=== PATIENT | male | born 1990 | race Caucasian/White ===

== ENCOUNTER 2022-06-09 13:46 | Emergency (ER) | payer OTHER, SELFPAY ==
[2022-06-09 13:57] VITALS: BP 139/80; PULSE 86; RESP 18; TEMP 36.8; O2SAT 98; BMI 30.8
--- NOTE | 2022-06-09 17:07 | ED.URI ---
HPI - URI/Sore Throat <CINTHIA Brown - Last Filed: 06/09/22 17:13> General Chief Complaint: Upper Respiratory Symptoms Stated Complaint: Wants to get swab for strep throat Time Seen by Provider: 06/09/22 16:59 Source: patient Mode of arrival: Ambulatory History of Present Illness HPI Narrative: This is a 31-year-old male presents emergency department complaining of sore throat for 2 days, states it has been worsening, he also has congestion, a cough, mild headache. Denies nausea vomiting or chills, denies fever, denies muscle aches. Endorses runny nose and postnasal drip. Denies any other symptoms. Related Data Previous Rx's Medication Instructions Recorded benzocaine 15 mg-menthol 2.6 mg 1 zion mucous membrane Q2H PRN sore 06/09/22 lozenges (Cepacol Sore Throat throat #16 ea (benzocaine-menthol)) benzonatate 200 mg capsule 200 mg PO BID PRN cough #14 caps 06/09/22 cetirizine 10 mg tablet 10 mg PO BEDTIME #20 tabs 06/09/22 Allergies Allergy/AdvReac Type Severity Reaction Status Date / Time No Known Drug Allergies Allergy Verified 06/09/22 13:56 Review of Systems <CINTHIA Brown - Last Filed: 06/09/22 17:13> Review of Systems ROS Unobtainable: All systems reviewed & are unremarkable except as noted in HPI and below Patient History <CINTHIA Brown - Last Filed: 06/09/22 17:13> Social History Smoking Status: Never smoker Smoking Status: Never smoker Substance Use Type: does not use Exam <CINTHIA Brown - Last Filed: 06/09/22 17:13> Narrative Exam Narrative: Reviewed vitals signs and nursing notes. General: cooperative, comfortable, in no acute distress, well groomed HEENT: symmetrical facial expressions, moist mucous membranes, posterior pharynx is erythematous without exudate, mild tonsillar adenopathy, uvula is midline, no cervical lymphadenopathy, normal phonation, clear speech, afebrile Neuro: normal speech and cognition, A&O x3, ambulatory, clear speech Psych: mental status is grossly normal, congruent mood, normal affect, pleasant and cooperative Initial Vital Signs Initial Vital Signs: Vital Signs Temperature 98.2 F 06/09/22 13:57 Pulse Rate 86 06/09/22 13:57 Respiratory Rate 18 06/09/22 13:57 Blood Pressure 139/80 06/09/22 13:57 Pulse Oximetry 98 06/09/22 13:57 Oxygen Delivery Method 06/09/22 13:57 <Lashaun Tanner DO - Last Filed: 06/12/22 09:40> Initial Vital Signs Initial Vital Signs: Vital Signs Temperature 98.2 F 06/09/22 13:57 Pulse Rate 86 06/09/22 13:57 Respiratory Rate 18 06/09/22 13:57 Blood Pressure 139/80 06/09/22 13:57 Pulse Oximetry 98 06/09/22 13:57 Oxygen Delivery Method 06/09/22 13:57 Course <CINTHIA Brown - Last Filed: 06/09/22 17:13> Orders Ordered: Discontinued Medications Acetaminophen (Acetaminophen 325 Mg Tablet) 650 mg PO NOW ONE Stop: 06/09/22 17:04 Last Admin: 06/09/22 17:32 Dose: 650 mg Documented By: JOHAN Dexamethasone (Dexamethasone 10 Mg/Ml Vial) 10 mg IV NOW ONE Stop: 06/09/22 17:04 Last Admin: 06/09/22 17:32 Dose: 10 mg Documented By: JOHAN Ketorolac Tromethamine (Ketorolac 10 Mg Tablet) 10 mg PO NOW ONE Stop: 06/09/22 17:04 Last Admin: 06/09/22 17:32 Dose: 10 mg Documented By: JOHAN Vital Signs Vital signs: Vital Signs - 8 hr 06/09/22 13:57 Temperature 98.2 F Pulse Rate 86 Respiratory Rate 18 Blood Pressure 139/80 Pulse Oximetry 98 Oxygen Delivery Method Room Air <Lashaun Tanner DO - Last Filed: 06/12/22 09:40> Orders Ordered: Discontinued Medications Acetaminophen (Acetaminophen 325 Mg Tablet) 650 mg PO NOW ONE Stop: 06/09/22 17:04 Last Admin: 06/09/22 17:32 Dose: 650 mg Documented By: JOHAN Dexamethasone (Dexamethasone 10 Mg/Ml Vial) 10 mg IV NOW ONE Stop: 06/09/22 17:04 Last Admin: 06/09/22 17:32 Dose: 10 mg Documented By: JOHAN Ketorolac Tromethamine (Ketorolac 10 Mg Tablet) 10 mg PO NOW ONE Stop: 06/09/22 17:04 Last Admin: 06/09/22 17:32 Dose: 10 mg Documented By: JOHAN Vital Signs Vital signs: Vital Signs - 8 hr 06/09/22 13:57 Temperature 98.2 F Pulse Rate 86 Respiratory Rate 18 Blood Pressure 139/80 Pulse Oximetry 98 Oxygen Delivery Method Room Air MDM - URI/Sore Throat <ANA BrownP - Last Filed: 06/09/22 17:13> Lab Data Labs: Lab Results 06/09/22 Range/Units 17:02 SARS-CoV-2 (PCR) Negative (Negative) Influenza A (RT-PCR) Flu a negative (NEGATIVE) Influenza B (RT-PCR) Flu b negative (NEGATIVE) RSV (PCR) Negative (Negative) Point of Care Testing Rapid Strep A Negative MDM Narrative Medical decision making narrative: Chief Complaint: Sore throat Differential diagnoses include but are not limited to: Viral or bacterial pharyngitis, upper respiratory illness COVID flu, tonsillitis, [employer], RPA, Ludwigs angina, Epiglottitis or Bacterial Tracheitis, EBV, or Strep throat. I have reviewed the patient's vital signs and nursing notes as well as prior records if available. Lab test results independently reviewed, pertinent findings: COVID PCR is pending Clinical decision rules or scores evaluated: Centor criteria 0 point Discussion: No history of immunocompromise. Nontoxic appearance. Patient euvolemic with no trismus. No airway compromise. No change in voice, exudates, enlarged lymph nodes. Able to tolerate PO. Given History and Exam I have low suspicion for this presentation being caused by bacterial source, this is most likely viral as patient has congestion, cough, runny nose and is without tonsillar exudate. Throat culture is pending, patient will follow-up with his primary care provider as needed, return to the emergency department for worsening symptoms or inability to tolerate p.o.. He was given Decadron and Toradol in the emergency department, prescribed cetirizine benzonatate, benzocaine menthol lozenges for comfort. Patient's symptoms improved over duration of stay with above-stated therapies. Social considerations that may affect disposition: None Questions are addressed and there is agreement with the plan and for follow-up. Patient is appropriate for outpatient management. [facility]: #65: Apprpriate Treatment for Patients with URI [x] The patient was diagnosed with upper respiratory infection and was not prescribed or dispensed an antibiotic. [SATISFIES MIPS PERFORMANCE] Centor Score (Modified/McIsaac) for Strep Pharyngitis from Inside on 06/09/2022 All calculations should be rechecked by clinician prior to use RESULT SUMMARY: 0 points 1% - 2.5% likelihood of strep No further testing nor antibiotics. INPUTS: Age ?> 0 = 15-44 years Exudate or swelling on tonsils ?> 0 = No Tender/swollen anterior cervical lymph nodes ?> 0 = No Temp >38&deg;C (100.4&deg;F) ?> 0 = No Cough ?> 0 = Cough present <Lashaun Tanner, DO - Last Filed: 06/12/22 09:40> Lab Data Labs: Lab Results 06/09/22 Range/Units 17:02 SARS-CoV-2 (PCR) Negative (Negative) Influenza A (RT-PCR) Flu a negative (NEGATIVE) Influenza B (RT-PCR) Flu b negative (NEGATIVE) RSV (PCR) Negative (Negative) Point of Care Testing Rapid Strep A Negative Discharge Plan Departure Patient Disposition: Home Clinical Impression: Upper respiratory infection Qualifiers: URI type: unspecified viral URI Qualified Code(s): J06.9 - Acute upper respiratory infection, unspecified Pharyngitis Qualifiers: Pharyngitis/tonsillitis etiology: unspecified etiology Qualified Code(s): J02.9 - Acute pharyngitis, unspecified Instructions: DI for Viral Upper Respiratory Infection -- Adult, DI for Viral Pharyngitis Activity Restrictions/Additional Instructions: *You have been diagnosed with what appears to be viral upper respiratory infection starting with a sore throat. It is red but does not appear to be bacterial at this time which is great. I am sorry for your symptoms, I hope that you start feeling better soon. Please use Zyrtec each night to decrease the postnasal drip, stay hydrated, take ibuprofen 800 mg every 8 hours with food and water to decrease inflammation. The steroid work for the next 3 days and reduce the inflammation in your throat. Follow-up if you have worsening symptoms, I hope you feel better soon. *What to do: *Please continue to take your regular medications as directed. [ x] New medication prescriptions sent to your pharmacy: [ [facility]] [ ] New medication written as a paper prescription [ ] No new medications given *Please follow up with your primary care provider in 2-3 days, call for an appointment. Let them know you were seen in the Emergency Department and that we asked that you be seen for follow-up. We will electronically transmit a record of today's note if your PCP is in our system *If you do not have a primary care provider please contact [phone] to establish care with one of the [facility] primary care providers. *Return to Emergency Department if you should have any new, worsening, or concerning symptoms, such as [fever greater than 101F, chills, worsening pain, persistent vomiting or other bothersome symptoms]. Prescriptions: New Cepacol Sore Throat (aaron-men) 15-2.6 mg lozenge 1 zion mucous membrane Q2H PRN (Reason: sore throat) Qty: 16 0RF cetirizine 10 mg tablet 10 mg PO BEDTIME Qty: 20 0RF benzonatate 200 mg capsule 200 mg PO BID PRN (Reason: cough) Qty: 14 0RF Stand Alone Forms: Patient Portal/API <Lashaun Tanner, DO - Last Filed: 06/12/22 09:40> [facility]ending Sindhu Attestation: I was immediately available in the department for consultation. Documentation has been reviewed.
[2022-06-09] MEDS: DEXAMETHASONE 10 MG/ML VIAL IV (17:32)
[2022-06-09] MEDS: KETOROLAC 10 MG TABLET PO (17:32)
[2022-06-09] MEDS: ACETAMINOPHEN 325 MG TABLET 650 MG PO (17:32)
[2022-06-09 17:44] LABS: Influenza A - CEPHEID Flu A NEGATIVE (NEGATIVE); Influenza B - CEPHEID Flu B NEGATIVE (NEGATIVE); Respiratory Syncytial Virus Negative (Negative)
[2022-06-09 17:48] LABS: COVID-19 CEPHEID 4-PLEX PCR Negative (Negative)
== END 2022-06-09 17:38 | disposition home or self-care (01) ==
PROVIDERS: Emergency Provider Nurse Practitioner Critical Care Medicine
DX: J06.9 Acute upper respiratory infection, unspecified (principal); J02.9 Acute pharyngitis, unspecified; Z20.822 Contact with and (suspected) exposure to COVID-19
CPT/HCPCS: 0241U; 87880; 96374; 99283; 99284; J1100

== ENCOUNTER 2022-12-31 17:48 | Emergency (ER) | payer OTHER, SELFPAY ==
[2022-12-31 17:53] VITALS: BP 146/91; PULSE 86; RESP 16; TEMP 36.7; O2SAT 97; BMI 30.8
--- NOTE | 2022-12-31 18:09 | DI.RAD.S_ITS ---
PROCEDURE: XR FOOT LT MIN 3V INDICATIONS: left 1st mtp joint pain and edema TECHNIQUE: 3 views of the foot were acquired. COMPARISON: None. FINDINGS: Bones: No fractures or dislocations. No suspicious bony lesions. Soft tissues: No tibiotalar joint effusion. Achilles tendon appears normal. IMPRESSION: Unremarkable left foot radiographs Approved by: Russell Bender M.D. on 12/31/2022 at 17:48
--- NOTE | 2022-12-31 18:18 | ED_ITS ---
HPI - Extremity Injury (Lower) <Veda Barbosa PA-C - Last Filed: 12/31/22 18:40> General Chief Complaint: Extremity Injury, Lower Stated Complaint: L/ foot injury/ thinks its broken Time Seen by Provider: 12/31/22 17:59 Source: patient Mode of arrival: Ambulatory History of Present Illness HPI Narrative: Patient is 32-year-old male who presents with left 1st MTP pain. Yesterday he went for a run, which is a normal activity for him in shoes that he has already run 150 miles in, and when he got home he noted this pain. His shoe and his joint was swollen and red, not warm. No fever or systemic illness. He has no history of gout. He does eat red meat, drink beer. Pain is worse when he is walking, he has to walk on the side of his foot because of the pain. He is not taken any pain medicine. He reports the swelling is better today because he has been applying ice. Related Data Previous Rx's Medication Instructions Recorded benzocaine 15 mg-menthol 2.6 mg 1 zion mucous membrane Q2H PRN sore 06/09/22 lozenges (Cepacol Sore Throat throat #16 ea (benzocaine-menthol)) benzonatate 200 mg capsule 200 mg PO BID PRN cough #14 caps 06/09/22 cetirizine 10 mg tablet 10 mg PO BEDTIME #20 tabs 06/09/22 colchicine (gout) 0.6 mg tablet 0.6 mg PO DAILY #30 tabs 12/31/22 prednisone 20 mg tablet 40 mg PO DAILY PRN gout 3 days #6 12/31/22 tabs Allergies Allergy/AdvReac Type Severity Reaction Status Date / Time No Known Drug Allergies Allergy Verified 06/09/22 13:56 Review of Systems <Veda Barbosa PA-C - Last Filed: 12/31/22 18:40> Review of Systems ROS Unobtainable: All systems reviewed & are unremarkable except as noted in HPI and below Patient History <Veda Barbsoa PA-C - Last Filed: 12/31/22 18:40> Social History Smoking Status: Never smoker Smoking Status: Never smoker Substance Use Type: does not use Exam <Veda Barbosa PA-C - Last Filed: 12/31/22 18:40> Narrative Exam Narrative: GENERAL: 32 year old patient appears stated age. Well-developed patient, in no distress. NEURO: AOx3. HEAD: Atraumatic. Normocephalic. RESPIRATORY: No distress EXTREMITIES: Left 1st MTP is erythematous and edematous, pain with passive range of motion. Positive DP pulse. Sensation intact. SKIN: No rash or erythema of visible areas Initial Vital Signs Initial Vital Signs: Vital Signs Temperature 98.0 F 12/31/22 17:53 Pulse Rate 86 12/31/22 17:53 Respiratory Rate 16 12/31/22 17:53 Blood Pressure 146/91 H 12/31/22 17:53 Pulse Oximetry 97 12/31/22 17:53 Oxygen Delivery Method Room Air 12/31/22 17:53 <Edwin Saravia DO - Last Filed: 01/01/23 02:40> Initial Vital Signs Initial Vital Signs: Vital Signs Temperature 98.0 F 12/31/22 17:53 Pulse Rate 86 12/31/22 17:53 Respiratory Rate 16 12/31/22 17:53 Blood Pressure 146/91 H 12/31/22 17:53 Pulse Oximetry 97 12/31/22 17:53 Oxygen Delivery Method Room Air 12/31/22 17:53 Course <Veda Barbosa PA-C - Last Filed: 12/31/22 18:40> Orders Ordered: ED Orders 12/31/22 18:09 XR foot LT min 3V Stat Discontinued Medications Colchicine (Colchicine 0.6 Mg Tablet) 1.2 mg PO NOW ONE Stop: 12/31/22 18:16 Last Admin: 12/31/22 18:38 Dose: 1.2 mg Documented By: EDILSON Colchicine (Colchicine 0.6 Mg Tablet) 0.6 mg PO DAILY MELANIE Colchicine (Colchicine 0.6 Mg Tablet) 0.6 mg PO NOW ONE Stop: 12/31/22 18:29 Last Admin: 12/31/22 18:39 Dose: 0.6 mg Documented By: MPO Ketorolac Tromethamine (Ketorolac 30 Mg/Ml Vial) 15 mg IM NOW ONE Stop: 12/31/22 18:16 Last Admin: 12/31/22 18:46 Dose: Not Given Documented By: BS Prednisone (Prednisone 20 Mg Tablet) 40 mg PO NOW ONE Stop: 12/31/22 18:18 Last Admin: 12/31/22 18:46 Dose: Not Given Documented By: ANDRES Vital Signs Vital signs: Vital Signs - 8 hr 12/31/22 17:53 Temperature 98.0 F Pulse Rate 86 Respiratory Rate 16 Blood Pressure 146/91 H Pulse Oximetry 97 Oxygen Delivery Method Room Air <Edwin Saravia DO - Last Filed: 01/01/23 02:40> Orders Ordered: ED Orders 12/31/22 18:09 XR foot LT min 3V Stat Discontinued Medications Colchicine (Colchicine 0.6 Mg Tablet) 1.2 mg PO NOW ONE Stop: 12/31/22 18:16 Last Admin: 12/31/22 18:38 Dose: 1.2 mg Documented By: EDILSON Colchicine (Colchicine 0.6 Mg Tablet) 0.6 mg PO DAILY MELANIE Colchicine (Colchicine 0.6 Mg Tablet) 0.6 mg PO NOW ONE Stop: 12/31/22 18:29 Last Admin: 12/31/22 18:39 Dose: 0.6 mg Documented By: EDILSON Ketorolac Tromethamine (Ketorolac 30 Mg/Ml Vial) 15 mg IM NOW ONE Stop: 12/31/22 18:16 Last Admin: 12/31/22 18:46 Dose: Not Given Documented By: ANDRES Prednisone (Prednisone 20 Mg Tablet) 40 mg PO NOW ONE Stop: 12/31/22 18:18 Last Admin: 12/31/22 18:46 Dose: Not Given Documented By: ANDRES Vital Signs Vital signs: Vital Signs - 8 hr 12/31/22 17:53 Temperature 98.0 F Pulse Rate 86 Respiratory Rate 16 Blood Pressure 146/91 H Pulse Oximetry 97 Oxygen Delivery Method Room Air MDM - Extremity Injury (Lower) <Veda Barbosa PA-C - Last Filed: 12/31/22 18:40> Imaging Data Extremity x-ray #1: My Impression: no acut bony abnormality seen on xray MDM Narrative Medical decision making narrative: Multiple etiologies for patient's symptoms considered including, but not limited to: Gout, septic arthritis, fracture, soft tissue injury. I suspect gout given clinical presentation in a male with a swollen 1st MTP joint. Doubt fracture but patient strongly requests a x-ray which we will obtain today. Doubt septic arthritis as joint is not warm, no fever, no signs of systemic illness. Will treat with colchicine, Toradol, prednisone. Patient declines to take Toradol or prednisone tonight. He will picker/puller prednisone and colchicine from pharmacy tomorrow. Patient's symptoms improved over duration of stay with above-stated therapies. Findings and discharge diagnosis discussed with patient/family followed by verbalization of understanding Return precautions discussed with patient/family whom verbalize understanding of diagnosis and plan Discharge Plan Departure Patient Disposition: Home Clinical Impression: Gout Instructions: DI for Gout Activity Restrictions/Additional Instructions: *You have been diagnosed with gout. I do not see any acute abnormality on your x-ray. Please return to see a provider if the pain does not resolve after prescribed treatment in 1 week, or if you develop fever along with your joint pain and swelling. Please read the included instructions about preventing gout flares. Additionally there are medications you can take for prevention if this becomes a problem, please speak with a primary care provider about this if needed. *What to do: *Please continue to take your regular medications as directed. [ x] New medication prescriptions sent to your pharmacy: [[facility] ] [ ] New medication written as a paper prescription [ ] No new medications given *Please follow up with your primary care provider in 2-3 days, call for an appointment. Let them know you were seen in the Emergency Department and that we ask that you be seen in follow up. We will electronically transmit a record of today's note if your PCP is in our system *If you do not have a primary care provider please contact the [facility] Resource line at [phone]. They will ask some questions about your medical history and help get you set up with a doctor in the community. *Return to Emergency Department if you should have any new, worsening or concerning symptoms, such as [fever greater than 101 F, shaking chills, worsening pain, persistent vomiting or other bothersome symptoms] Prescriptions: New prednisone 20 mg tablet 40 mg PO DAILY PRN (Reason: gout) 3 Days Qty: 6 0RF colchicine (gout) 0.6 mg tablet 0.6 mg PO DAILY Qty: 30 0RF Rx Instructions: When gout flare starts, take two tabs immediately and one tab one hour later. After that, take one tablet daily until the flare resolves. No Action Cepacol Sore Throat (aaron-men) 15-2.6 mg lozenge 1 zion mucous membrane Q2H PRN (Reason: sore throat) Qty: 16 0RF cetirizine 10 mg tablet 10 mg PO BEDTIME Qty: 20 0RF benzonatate 200 mg capsule 200 mg PO BID PRN (Reason: cough) Qty: 14 0RF Referrals: Miscellaneous,Doctor, MD [Primary Care Provider] - Stand Alone Forms: Patient Portal/API <Edwin Saravia DO - Last Filed: 01/01/23 02:40> [facility] ED Attending Sindhu Attestation: I was immediately available in the department for consultation. Documentation has been reviewed. I agree with assessment and plan.
[2022-12-31] MEDS: COLCHICINE 0.6 MG TABLET 1.2 MG PO (18:38)
[2022-12-31] MEDS: COLCHICINE 0.6 MG TABLET PO (18:39)
== END 2022-12-31 18:48 | disposition home or self-care (01) ==
PROVIDERS: Emergency Provider Physician Assistant
DX: M10.9 Gout, unspecified (principal)
CPT/HCPCS: 73630; 99283

== ENCOUNTER 2023-10-05 13:36 | Emergency (ER) | payer OTHER, SELFPAY ==
[2023-10-05 13:38] VITALS: BP 145/81; PULSE 105; RESP 18; TEMP 36.4; O2SAT 97; BMI 31.5
[2023-10-05] MEDS: BACITRACIN OINT 0.9 GM PCKT 1 APPLIC TOP (14:16)
[2023-10-05 14:30] VITALS: BP 157/87; PULSE 83; O2SAT 99
--- NOTE | 2023-10-05 14:30 | ED_ITS ---
HPI - Wound/Laceration General Chief Complaint: Wound/Laceration Stated Complaint: R ring finger laceration, open wound Time Seen by Provider: 10/05/23 14:00 Source: patient Mode of arrival: Ambulatory History of Present Illness HPI narrative: 33-year-old man whose tetanus is current. He avulsed some skin off of his right ring finger just prior to arrival, was unable to stop the bleeding therefore he came to the emergency department. Related Data Previous Rx's Medication Instructions Recorded benzocaine 15 mg-menthol 2.6 mg 1 zion mucous membrane Q2H PRN sore 06/09/22 lozenges (Cepacol Sore Throat throat #16 ea (benzocaine-menthol)) benzonatate 200 mg capsule 200 mg PO BID PRN cough #14 caps 06/09/22 cetirizine 10 mg tablet 10 mg PO BEDTIME #20 tabs 06/09/22 colchicine 0.6 mg tablet 0.6 mg PO DAILY #30 tabs 12/31/22 Allergies Allergy/AdvReac Type Severity Reaction Status Date / Time No Known Drug Allergies Allergy Verified 10/05/23 13:43 Patient History Social History Smoking Status: Never smoker Smoking Status: Never smoker Substance Use Type: does not use Exam Narrative Exam Narrative: Well-appearing male in no distress with normal vital signs Initial Vital Signs Initial Vital Signs: Vital Signs Temperature 97.5 F L 10/05/23 13:38 Pulse Rate 105 H 10/05/23 13:38 Respiratory Rate 18 10/05/23 13:38 Blood Pressure 145/81 H 10/05/23 13:38 Pulse Oximetry 97 10/05/23 13:38 Oxygen Delivery Method Room Air 10/05/23 13:38 Skin Other: On the radial aspect of the right ring finger there is an area of superficial skin avulsion. He has fully intact range of motion does not have bony tenderness has intact capillary refill distally. Bleeding is easily controlled with direct pressure, it was not brisk. There is no suturable laceration. Course Orders Ordered: Discontinued Medications Bacitracin (Bacitracin Oint 0.9 Gm Pckt) 1 applic TOP NOW ONE Stop: 10/05/23 14:09 Last Admin: 10/05/23 14:16 Dose: 1 applic Documented By: ES Vital Signs Vital signs: Vital Signs - 8 hr // 13:38 Temperature 97.5 F L Pulse Rate 105 H Respiratory Rate 18 Blood Pressure 145/81 H Pulse Oximetry 97 Oxygen Delivery Method Room Air MDM - Wound/Laceration MDM Narrative Medical decision making narrative: Superficial skin avulsion without evidence of fracture or underlying tendon in jury. Recommended pressure dressing and home wound care. Tetanus was current Discharge Plan Departure Patient Disposition: Home Clinical Impression: Avulsion of skin Activity Restrictions/Additional Instructions: Keep wound clean and covered. Apply antibiotic ointment and change the dressing daily. We have applied a pressure dressing, leave this on for 24 hours, elevate the wound above the level of the heart when able. Recheck in the emergency department for redness swelling or discharge from the wound that could indicate infection. Expect that this is going to take a few days to heal, take it easy with your finger and keep your finger clean until then. Prescriptions: No Action Cepacol Sore Throat (aaron-men) 15-2.6 mg lozenge 1 zion mucous membrane Q2H PRN (Reason: sore throat) Qty: 16 0RF cetirizine 10 mg tablet 10 mg PO BEDTIME Qty: 20 0RF benzonatate 200 mg capsule 200 mg PO BID PRN (Reason: cough) Qty: 14 0RF colchicine 0.6 mg tablet 0.6 mg PO DAILY Qty: 30 0RF Rx Instructions: When gout flare starts, take two tabs immediately and one tab one hour later. After that, take one tablet daily until the flare resolves. Referrals: Miscellaneous,Doctor, MD [Primary Care Provider] - Stand Alone Forms: Patient Portal/API
== END 2023-10-05 14:25 | disposition home or self-care (01) ==
PROVIDERS: Emergency Provider Emergency Medicine
DX: S61.204A Unspecified open wound of right ring finger without damage to nail, initial encounter (principal); X58.XXXA Exposure to other specified factors, initial encounter
CPT/HCPCS: 99282; 99283

== ENCOUNTER 2024-12-17 10:45 | Outpatient (RCR) | payer OTHER, SELFPAY ==
--- NOTE | 2024-12-04 19:09 | PT.OIE ---
Current Diagnoses Attention-deficit hyperactivity disorder, unspecified type (12/04/24) Lesion of sciatic nerve, left lower limb (12/04/24) Radiculopathy, lumbosacral region (12/04/24) Past Medical History (Last Updated 07/04/24 @ 09:32 by Margaux Sue DO) ADHD (~2007) Foot pain (~2018) TONIE (generalized anxiety disorder) (~2017) Hyperlipidemia, unspecified Obesity (BMI 30.0-34.9) Tinnitus Visit Care Team Role Provider Type Margaux Sue DO Attending Provider Physician Family Provider Primary Care Provider Referring Provider Specialty: Family Practice Address: [address] [place] [address], [address], [facility] Email: [email or web address] Physical Therapy Initial Evaluation PT-OP-A Visit Information Start: 12/01/24 18:59 Freq: Status: Active Protocol: Document 12/04/24 10:50 LRN (Rec: 12/04/24 11:48 LRN Laptop) Out-Patient Physical Therapy Visit Information Visit Information Visit Type Initial Evaluation Visit Start Time 10:50 Visit Stop Time 11:45 Visit Number 1 Evaluation Information Evaluation Date 12/04/24 Precautions Precautions Anxiety & ADHD controlled by meds, intermittent back pain (Piriformis pain) PT-OP-B Current Condition Start: 12/01/24 18:59 Freq: Status: Active Protocol: Document 12/04/24 10:50 LRN (Rec: 12/04/24 11:48 LRN Laptop) Current Condition History of Current Condition Onset Date 3 yrs ago Current Complaints L buttock pain radiating into the leg, down the front of cash. History of Current Here for same pain as previously has had Piriformis Condition Pain. Feels like boiling water is running from L buttock down the front of the leg going across the knee . Previously treated 2 yrs in a clinic in [place] the [employer] [place]. Just got out of [place] 7 months ago. Piriformis pain managed with stretch from 2019 to 2021, started to be a problem 3 yrs ago pain wouldn' t go did not go away. Only stretching to manage the pain. Getting up from sitting is painful. Tries to walk daily, but has to break it up into increments 10- 15', 2-3x/day. Prior Treatments and PT in 2021 for the L LE pain. Tests Treatment Goals Patient/Caregiver Pt goals: Goals -Relief of pain to be able to sit for > 30 minutes, -Return to run 15' 1-2x/day (not running) or weight or cross training (being able to do squatting). -Consistent with HEP. 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 Effect Therapy/ Has 3 yo child. Recovery PT-OP-C Subjective Start: 12/01/24 18:59 Freq: Status: Active Protocol: Document 12/04/24 10:50 LRN (Rec: 12/04/24 11:48 LRN Laptop) OP-PT Subjective Patient Comments Patient Comments States he has had various muscle pain from not stretching. Used to run and play rugby (4 yrs ago stopped). Patient Questionnaires Lower Extremity Functional Scale LEFS Score 37 LEFS Impairment 40 to 59% Impaired (Score 32-47) Oswestry Low Back Index Oswestry Score 22 Oswestry Impairment 20 to 39% Impaired (Score 20-39) PT-OP-H Neuro Start: 12/01/24 18:59 Freq: Status: Active Protocol: Document 12/04/24 10:50 LRN (Rec: 12/04/24 11:48 LRN Laptop) Sensation Evaluation Gross Sensation Gross Sensation Left LE Impaired Sensation Numbness,Tingling Description Dermatome L5 Impairments Location Details Left Lateral Leg Light Touch Impaired Comments Summary Comments Pt reported decreased sensation of anterior thigh, but at time of assessment sensation to light touch was normal Deep Tendon Reflex & Clonus Assessment Deep Tendon Reflex Right Achilles Deep Tendon Reflex 3+ Normal But Brisk Left Achilles Deep Tendon Reflex 2+ Normal Left Patellar Deep Tendon Reflex 1+ Diminished Right Patellar Deep Tendon Reflex 3+ Normal But Brisk PT-OP-J Posture/Palpation/Skin Start: 12/01/24 18:59 Freq: Status: Active Protocol: Document 12/04/24 10:50 LRN (Rec: 12/04/24 11:48 LRN Laptop) Posture Evaluation Position Standing Arm Posture (L) Internally Rotated,(R) Internally Rotated Comments Posture Comments RLE slightly ER'd more than left. Palpation Assessment Location L gluteal ms Palpation Findings Tenderness Spinous process of L3, L4, L5 Palpation Location PA pressure Palpation Findings Tenderness PT-OP-K Range of Motion Start: 12/01/24 18:59 Freq: Status: Active Protocol: Document 12/04/24 10:50 LRN (Rec: 12/04/24 11:48 LRN Laptop) Lumbar Spine Range of Motion Lumbar Spine Active Degrees Testing Position Standing Flexion 78 Extension 25 Rotation Left 20 Rotation Right 10 Lateral Flexion Left 25 Lateral Flexion 20 Right Comments Ext: Lumbar 25? with hip [id number]?. Flex: Lumbar 78? with hip flexion 55? Hip Goniometric Range of Motion Hip Right Passive Testing Position Supine Straight Leg Raise 90 Internal Rotation 20 External Rotation 55 Left Passive Straight Leg Raise 60 Internal Rotation 20 External Rotation 75 Comments Hip Flexion elicited sensation change in anterior thigh . PT-OP-L Special Tests Start: 12/01/24 18:59 Freq: Status: Active Protocol: Document 12/04/24 10:50 LRN (Rec: 12/04/24 11:48 LRN Laptop) Special Tests Lumbar Spine Special Tests Manual Traction Test Results + L LE Comments Mild normalization of L lateral lower leg sensation Straight Leg Raise Test Results + L LE Comments L LE Pain at PSLR 60 deg's, R LE 90 deg's PT-OP-M Strength Start: 12/01/24 18:59 Freq: Status: Active Protocol: Document 12/04/24 10:50 LRN (Rec: 12/04/24 11:48 LRN Laptop) Knee Strength Knee Manual Muscle Testing Right Comments Strength is 5/5 Left Flexion (S2) 4+ Good+ Comments Strength is 5/5 except as indicated abovel Ankle/Foot Strength Ankle and Foot Manual Muscle Testing Right Comments Strength is 5/5 Left Dorsiflexion (L4) 4+ Good+ Comments Strength is 5/5 except as indicated above. PT-OP-Q Treatments Start: 12/01/24 18:59 Freq: Status: Active Protocol: Document 12/04/24 10:50 LRN (Rec: 12/04/24 11:48 LRN Laptop) Therapeutic Activity Therapeutic Activity Lying postures Name supine, sidelie & prone Comments Brief review, pt okayed to sleep prone if it is his position of comfort. Transfers Name Supine to sit log roll vs sit up transfer Comments Reviewed briefly log roll transfer with handout. Body mechanics Name Body mechanics for sidelying and sitting. Comments Reviewed briefly handout for posturing in resting sidelie, and standing in kitchen. Self-Care/Home Management Treatment Education Other Education Discussed results of evaluation, extended discussion of goals, treatment, and plan of care (POC) with pt; pt agreeable to evaluation, goals, treatment and POC. Activities Self-Care/Home Issued with brief review of Handouts: Lying postures ( Management sup, side, prone); body mechanics standing, and sitting Activities ; and Transfer: Log roll method for bed mobility sup<> sit. PT-OP-T Assessment and Plan Start: 12/01/24 18:59 Freq: Status: Active Protocol: Document 12/04/24 10:50 LRN (Rec: 12/04/24 11:48 LRN Laptop) Physical Therapy Assessment Rehab Potential Rehabilitation Good Potential Evaluation Complexity Number of Personal 1-2 Factors/ Comorbidities Number of Body 4 or More Systems Impaired Clinical Evolving Presentation at Evaluation Impairments Impairments Activity Tolerance,Pain,ROM,Sensation,Soft Tissue Mobility,Strength,Transfers Goals Three Impairment Pt limited in sitting ability due to pain Short Term Goal (STG Pt will be educated in proper sitting/standing posture. ) 12/04/24: handout issued for safe sitting body mechanics. STG Duration 01/01/25 progressed 12/04/24 Data Center Architect Goal (LTG) Relief of pain to be able to sit for > 30 minutes. LTG Duration 01/29/25 Two Impairment Pt not able to return to prior level of function of exercise Short Term Goal (STG Pt will be educated in proper body mechanics for ADLs ) and exercise. 12/04/24: Brief discussion w/handout issued: Postures in lying (sup, side, prone) STG Duration 01/01/25 progressed 12/04/24 Data Center Architect Goal (LTG) Return to run 15' 1-2x/day (not running) or weight or cross training (being able to do squatting). LTG Duration 01/29/25 One Impairment Pt lacks appropriate self care HEP Short Term Goal (STG Pt will be educated and will demonstrate log roll ) transfers. 12/04/24: Pt briefly educated in log roll transfer sup >sit. STG Duration 01/01/25 progressed 12/04/24 Group Home Goal (LTG) Pt will be independent and consistent with a self care HEP for core/hip strengthening and mobility ex's. LTG Duration 01/29/25 Assessment Summary Assessment Pt is a 34 yo male who presents with signs and symptoms of lumbar radiculopathy with sensation changes in his L LE (L5) and weakness of hamstring, ankle DF & Big toe extension, and limited mobility with trunk and hip IR ROM. There is no lateral shift of the L/S. If pt is unable to resolve his sensation changes and pain it is recommended for further assessment for possible lumbar involvement. The pt will benefit from skilled physical therapy for pt education, posture and body mechanics training, hip/core mobility and L LE strengthening. Physical Therapy Plan Frequency and Duration Frequency of 2x/Week Treatment Duration of 8 treatment (weeks) Plan of Care Start 12/04/24 Date Plan of Care End 01/29/25 Date Therapeutic Interventions Therapeutic Home Exercise Program,Joint Mobilizations,Manual Interventions Therapy,Neuromuscular Re-education,Self-Care/Home Management,Therapeutic Activities,Therapeutic Exercises Modalities Electric Stimulation,Hot Packs,Ultrasound Next Visit Focus/Plan Next Note Type Treatment Note Next Visit Plan Pt to complete Pain diagram. Assess vertical spine loading, slump test and prone press ups, and hip/trunk strength. Review and educate in proper transfers, body mechanics for exercise, and work posturing. Start Seema extension exercises and improve thoracic mobility (flex, rot). Teach care for lumbar nerves and proper hip IR stretching (no ball rolling) & neural glides. Manual lumbar traction if needed. Modalities as needed for pain. POC: Seema Extension rehab. Pt education, Manual therapy. Therapeutic Exercises, Therapeutic Activities, Neuromuscular Reeducation.
--- NOTE | 2024-12-09 08:31 | PT-OP ANOTE ---
Per phone conversation, pt states he has a mtg in 15' and can't make it to therapy. Pt reminded of the cancelation policy for no shows, and notified of his next appt on 12/11/24 at 11:30.
--- NOTE | 2024-12-11 12:18 | PT.OTN ---
Current Diagnoses Attention-deficit hyperactivity disorder, unspecified type (12/11/24) Lesion of sciatic nerve, left lower limb (12/11/24) Radiculopathy, lumbosacral region (12/11/24) Physical Therapy Treatment Note PT-OP-A Visit Information Start: 12/01/24 18:59 Freq: Status: Active Protocol: Document 12/11/24 11:36 SP (Rec: 12/11/24 12:41 SP [id number]) Out-Patient Physical Therapy Visit Information Visit Information Visit Type Treatment Note Visit Start Time 11:36 Visit Stop Time 12:18 Visit Number 2 Number of HYDRO PNEUMATIC TESTER Visits 1 PT-OP-B Current Condition Start: 12/01/24 18:59 Freq: Status: Active Protocol: Document 12/04/24 10:50 LRN (Rec: 12/04/24 11:48 LRN Laptop) Current Condition History of Current Condition Onset Date 3 yrs ago Current Complaints L buttock pain radiating into the leg, down the front of cash. History of Current Here for same pain as previously has had Piriformis Condition Pain. Feels like boiling water is running from L buttock down the front of the leg going across the knee . Previously treated 2 yrs in a clinic in [place] near the [employer] base. Just got out of [place] 7 months ago. Piriformis pain managed with stretch from 2019 to 2021, started to be a problem 3 yrs ago pain wouldn' t go did not go away. Only stretching to manage the pain. Getting up from sitting is painful. Tries to walk daily, but has to break it up into increments 10- 15', 2-3x/day. Prior Treatments and PT in 2021 for the L LE pain. Tests Treatment Goals Patient/Caregiver Pt goals: Goals -Relief of pain to be able to sit for > 30 minutes, -Return to run 15' 1-2x/day (not running) or weight or cross training (being able to do squatting). -Consistent with HEP. 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 Effect Therapy/ Has 3 yo child. Recovery PT-OP-C Subjective Start: 12/01/24 18:59 Freq: Status: Active Protocol: Document 12/11/24 11:36 SP (Rec: 12/11/24 12:41 SP [id number]) OP-PT Subjective Patient Comments Patient Comments Pt stated woke up back hurtigng so did some things make it better, self traction hangs on kids monkey bars, downward dog and TA back to wall walk shld up to decrease. Uses ball sit on for self massage/release piriformis but hasn't been helping as much past month so stopped. He stated performs wt squats 135# 1-2 day/ wk couple days (MWF or MF). He walk as much as can: short 1/2 mile, >2 miles straight pain. PT-OP-H Neuro Start: 12/01/24 18:59 Freq: Status: Active Protocol: Document 12/04/24 10:50 LRN (Rec: 12/04/24 11:48 LRN Laptop) Sensation Evaluation Gross Sensation Gross Sensation Left LE Impaired Sensation Numbness,Tingling Description Dermatome L5 Impairments Location Details Left Lateral Leg Light Touch Impaired Comments Summary Comments Pt reported decreased sensation of anterior thigh, but at time of assessment sensation to light touch was normal Deep Tendon Reflex & Clonus Assessment Deep Tendon Reflex Right Achilles Deep Tendon Reflex 3+ Normal But Brisk Left Achilles Deep Tendon Reflex 2+ Normal Left Patellar Deep Tendon Reflex 1+ Diminished Right Patellar Deep Tendon Reflex 3+ Normal But Brisk PT-OP-J Posture/Palpation/Skin Start: 12/01/24 18:59 Freq: Status: Active Protocol: Document 12/04/24 10:50 LRN (Rec: 12/04/24 11:48 LRN Laptop) Posture Evaluation Position Standing Arm Posture (L) Internally Rotated,(R) Internally Rotated Comments Posture Comments RLE slightly ER'd more than left. Palpation Assessment Location L gluteal ms Palpation Findings Tenderness Spinous process of L3, L4, L5 Palpation Location PA pressure Palpation Findings Tenderness PT-OP-K Range of Motion Start: 12/01/24 18:59 Freq: Status: Active Protocol: Document 12/04/24 10:50 LRN (Rec: 12/04/24 11:48 LRN Laptop) Lumbar Spine Range of Motion Lumbar Spine Active Degrees Testing Position Standing Flexion 78 Extension 25 Rotation Left 20 Rotation Right 10 Lateral Flexion Left 25 Lateral Flexion 20 Right Comments Ext: Lumbar 25? with hip [id number]?. Flex: Lumbar 78? with hip flexion 55? Hip Goniometric Range of Motion Hip Right Passive Testing Position Supine Straight Leg Raise 90 Internal Rotation 20 External Rotation 55 Left Passive Straight Leg Raise 60 Internal Rotation 20 External Rotation 75 Comments Hip Flexion elicited sensation change in anterior thigh . PT-OP-L Special Tests Start: 12/01/24 18:59 Freq: Status: Active Protocol: Document 12/04/24 10:50 LRN (Rec: 12/04/24 11:48 LRN Laptop) Special Tests Lumbar Spine Special Tests Manual Traction Test Results + L LE Comments Mild normalization of L lateral lower leg sensation Straight Leg Raise Test Results + L LE Comments L LE Pain at PSLR 60 deg's, R LE 90 deg's PT-OP-M Strength Start: 12/01/24 18:59 Freq: Status: Active Protocol: Document 12/04/24 10:50 LRN (Rec: 12/04/24 11:48 LRN Laptop) Knee Strength Knee Manual Muscle Testing Right Comments Strength is 5/5 Left Flexion (S2) 4+ Good+ Comments Strength is 5/5 except as indicated abovel Ankle/Foot Strength Ankle and Foot Manual Muscle Testing Right Comments Strength is 5/5 Left Dorsiflexion (L4) 4+ Good+ Comments Strength is 5/5 except as indicated above. PT-OP-Q Treatments Start: 12/01/24 18:59 Freq: Status: Active Protocol: Document 12/11/24 11:36 SP (Rec: 12/11/24 12:41 SP [id number]) Therapeutic Exercises Supine Exercises self Traction Supine Exercise Name instructed & performed Resistance LEs over elevated portable bench as alternative positioning Reps/Minutes 4 min Comments good feedback Prone Exercises Downward DOg Prone Exercise Name review self stretch Reps/Minutes 30 sec hold 1-2 reps Comments good form and give significant relief to him when back is bothersome- sathish Plank Prone Exercise Name forearm and feet- reviewed self HEP- stated can continue Resistance *recheck again next tx for time Reps/Minutes 20 sec Comments cues for PPT and TS lower midline- improved stability with no pain BIrd Dog Prone Exercise Name BUE/BLE ext- added to HEP (declined HO) Reps/Minutes 10 reps alternating- 2 SH Comments cued slow pacing Prone press ups Prone Exercise Name added to HEP (declined HO) Reps/Minutes 20 sec hold x5 reps Comments forearms>hands, pelvis on table/floor- good form, no pain Standing Exercises squats Standing Exercise air squat- assess mechanics/form Name Resistance dowel in BUE on upper back Equipment Used *improved very minimal pelvic wink Reps/Minutes 8 reps Comments cued PPT with TA draw in neutral LS- then hip hinge- Manual Therapy Treatment Consent Patient gave verbal Yes consent for manual treatment Soft Tissue Mobilization LB Body Location L>R QL, ES more tight than Piriformis seems fine/no tension Mobilization Type Rolling,Strumming Body Position prone, foam roller under ankles Comments Gentle minimal pressure, heavy to uncomfortable Manual Traction LS Reps/Duration 5 reps 20 sec hold Comments prone caudal pelvis good response decreased pain in back Self-Care/Home Management Treatment Education Patient Education Body Mechanics,Pain Management,Posture,Safety Other Education Assessment: Vertical standing loading test- no pain Slump Test: + on L slumped and LAQ- pain/spasm into center calf, fine on R Continued education on use pillows during sleeping prone under pelvis, SL between BLEs BUEs and behind back, under thighs supine for spinal alignment support. Education during squatting for PPT and TA fac hip hinge proper form/body mechanics during picking up child and low 45# bar to no weight at gym to support back health alignment right now, verbalized understanding latent response 1-2 days could be body's response to nerve involvement right now. PT-OP-T Assessment and Plan Start: 12/01/24 18:59 Freq: Status: Active Protocol: Document 12/11/24 11:36 SP (Rec: 12/11/24 12:41 SP [id number]) Physical Therapy Assessment Goals Three Impairment Pt limited in sitting ability due to pain Short Term Goal (STG Pt will be educated in proper sitting/standing posture. ) 12/04/24: handout issued for safe sitting body mechanics. 12/11/24: using sit HO for guidence, can sit for 20-30 min beofre has to get up- using [email or web address] good ergonomic chair home. STG Duration 01/01/25 progressed 12/11/24 Fdc Goal (LTG) Relief of pain to be able to sit for > 30 minutes. LTG Duration 01/29/25 Two Impairment Pt not able to return to prior level of function of exercise Short Term Goal (STG Pt will be educated in proper body mechanics for ADLs ) and exercise. 12/04/24: Brief discussion w/handout issued: Postures in lying (sup, side, prone) STG Duration 01/01/25 progressed 12/04/24 Ditch Cleaner Goal (LTG) Return to run 15' 1-2x/day (not running) or weight or cross training (being able to do squatting). LTG Duration 01/29/25 One Impairment Pt lacks appropriate self care HEP Short Term Goal (STG Pt will be educated and will demonstrate log roll ) transfers. 12/04/24: Pt briefly educated in log roll transfer sup >sit. STG Duration 01/01/25 progressed 12/04/24 Fdc Goal (LTG) Pt will be independent and consistent with a self care HEP for core/hip strengthening and mobility ex's. 12/11/24: prone press ups, bird dog (UE/LE ext), self traction hang vs hooklying (no HOs- declned), Can continue air/low wt squats, downward dog stretch, trialed plank with dues for proper form- no pain, reassess for time next tx. LTG Duration 01/29/25 progressing 12/11/24 Assessment Summary Assessment Pt had no pain during standing vertical load test deg, seated lump test +, see self care details (not written in special tests). Pt had good feedback response to manual, no pain with initiated extension HEP see goal and ex for activity performed today without pain. Good understanding neutral pelvis during activities for decreased spinal tension and allowance not have latent response. Recommended limit prone sleeping but if doing pull pillow under pelvis for spinal support. Physical Therapy Plan Frequency and Duration Frequency of 2x/Week Treatment Duration of 8 treatment (weeks) Plan of Care Start 12/04/24 Date Plan of Care End 01/29/25 Date Therapeutic Interventions Therapeutic Home Exercise Program,Joint Mobilizations,Manual Interventions Therapy,Neuromuscular Re-education,Self-Care/Home Management,Therapeutic Activities,Therapeutic Exercises Modalities Electric Stimulation,Hot Packs,Ultrasound Next Visit Focus/Plan Next Note Type Treatment Note Next Visit Plan Next complete Pain diagram, again (he stated did one but HYDRO PNEUMATIC TESTER didn't find after tx ended). review HEP: Prone press ups, bird dog, self traction response. Next progress hip/trunk strength. Continue review and educate in proper transfers, body mechanics for playing with child, exercise, and work posturing. Start Seema extension exercises and improve thoracic mobility (flex, rot). Teach care for lumbar nerves and proper hip IR stretching (no ball rolling) & neural glides. Manual lumbar traction if needed. Modalities as needed for pain. POC: Seema Extension rehab. Pt education, Manual therapy. Therapeutic Exercises, Therapeutic Activities, Neuromuscular Reeducation.
--- NOTE | 2024-12-15 18:38 | PT.OTN ---
Current Diagnoses Attention-deficit hyperactivity disorder, unspecified type (12/15/24) Lesion of sciatic nerve, left lower limb (12/15/24) Radiculopathy, lumbosacral region (12/15/24) Physical Therapy Treatment Note PT-OP-A Visit Information Start: 12/01/24 18:59 Freq: Status: Active Protocol: Document 12/15/24 10:46 LRN (Rec: 12/15/24 11:39 LRN Laptop) Out-Patient Physical Therapy Visit Information Visit Information Visit Type Treatment Note Visit Start Time 10:46 Visit Stop Time 11:36 Visit Number 3 PT-OP-B Current Condition Start: 12/01/24 18:59 Freq: Status: Active Protocol: Document 12/04/24 10:50 LRN (Rec: 12/04/24 11:48 LRN Laptop) Current Condition History of Current Condition Onset Date 3 yrs ago Current Complaints L buttock pain radiating into the leg, down the front of cash. History of Current Here for same pain as previously has had Piriformis Condition Pain. Feels like boiling water is running from L buttock down the front of the leg going across the knee . Previously treated 2 yrs in a clinic in [place] [facility] the [employer] [facility]. Just got out of [place] 7 months ago. Piriformis pain managed with stretch from 2019 to 2021, started to be a problem 3 yrs ago pain wouldn' t go did not go away. Only stretching to manage the pain. Getting up from sitting is painful. Tries to walk daily, but has to break it up into increments 10- 15', 2-3x/day. Prior Treatments and PT in 2021 for the L LE pain. Tests Treatment Goals Patient/Caregiver Pt goals: Goals -Relief of pain to be able to sit for > 30 minutes, -Return to run 15' 1-2x/day (not running) or weight or cross training (being able to do squatting). -Consistent with HEP. 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 Effect Therapy/ Has 3 yo child. Recovery PT-OP-C Subjective Start: 12/01/24 18:59 Freq: Status: Active Protocol: Document 12/15/24 10:46 LRN (Rec: 12/15/24 11:39 LRN Laptop) OP-PT Subjective Patient Comments Patient Comments If moves core, gets tightening of the back. Sciatic is still there, but there is a new soreness of tightness in the back. [place] good all weekend. OP-PT Pain Assessment Location L LBP>LE Pain Location L LB>pain down posterior, lateral, anterior LE to ankle Details Pain Intensity 6 Scale Used Numeric (0 - 10) PT-OP-H Neuro Start: 12/01/24 18:59 Freq: Status: Active Protocol: Document 12/04/24 10:50 LRN (Rec: 12/04/24 11:48 LRN Laptop) Sensation Evaluation Gross Sensation Gross Sensation Left LE Impaired Sensation Numbness,Tingling Description Dermatome L5 Impairments Location Details Left Lateral Leg Light Touch Impaired Comments Summary Comments Pt reported decreased sensation of anterior thigh, but at time of assessment sensation to light touch was normal Deep Tendon Reflex & Clonus Assessment Deep Tendon Reflex Right Achilles Deep Tendon Reflex 3+ Normal But Brisk Left Achilles Deep Tendon Reflex 2+ Normal Left Patellar Deep Tendon Reflex 1+ Diminished Right Patellar Deep Tendon Reflex 3+ Normal But Brisk PT-OP-J Posture/Palpation/Skin Start: 12/01/24 18:59 Freq: Status: Active Protocol: Document 12/04/24 10:50 LRN (Rec: 12/04/24 11:48 LRN Laptop) Posture Evaluation Position Standing Arm Posture (L) Internally Rotated,(R) Internally Rotated Comments Posture Comments RLE slightly ER'd more than left. Palpation Assessment Location L gluteal ms Palpation Findings Tenderness Spinous process of L3, L4, L5 Palpation Location PA pressure Palpation Findings Tenderness PT-OP-K Range of Motion Start: 12/01/24 18:59 Freq: Status: Active Protocol: Document 12/04/24 10:50 LRN (Rec: 12/04/24 11:48 LRN Laptop) Lumbar Spine Range of Motion Lumbar Spine Active Degrees Testing Position Standing Flexion 78 Extension 25 Rotation Left 20 Rotation Right 10 Lateral Flexion Left 25 Lateral Flexion 20 Right Comments Ext: Lumbar 25? with hip [id number]?. Flex: Lumbar 78? with hip flexion 55? Hip Goniometric Range of Motion Hip Right Passive Testing Position Supine Straight Leg Raise 90 Internal Rotation 20 External Rotation 55 Left Passive Straight Leg Raise 60 Internal Rotation 20 External Rotation 75 Comments Hip Flexion elicited sensation change in anterior thigh . PT-OP-L Special Tests Start: 12/01/24 18:59 Freq: Status: Active Protocol: Document 12/04/24 10:50 LRN (Rec: 12/04/24 11:48 LRN Laptop) Special Tests Lumbar Spine Special Tests Manual Traction Test Results + L LE Comments Mild normalization of L lateral lower leg sensation Straight Leg Raise Test Results + L LE Comments L LE Pain at PSLR 60 deg's, R LE 90 deg's PT-OP-M Strength Start: 12/01/24 18:59 Freq: Status: Active Protocol: Document 12/04/24 10:50 LRN (Rec: 12/04/24 11:48 LRN Laptop) Knee Strength Knee Manual Muscle Testing Right Comments Strength is 5/5 Left Flexion (S2) 4+ Good+ Comments Strength is 5/5 except as indicated abovel Ankle/Foot Strength Ankle and Foot Manual Muscle Testing Right Comments Strength is 5/5 Left Dorsiflexion (L4) 4+ Good+ Comments Strength is 5/5 except as indicated above. PT-OP-Q Treatments Start: 12/01/24 18:59 Freq: Status: Active Protocol: Document 12/15/24 10:46 LRN (Rec: 12/15/24 11:39 LRN Laptop) Therapeutic Exercises Supine Exercises NS/Vivek arm lifts Side bilateral Reps/Minutes 15x Comments Cued to keep neutral spine, last rep onset of L sciatic NS/Alt arm lifts Side bilateral Reps/Minutes 15x each Comments Cued to keep neutral spine Neutral spine Reps/Minutes x3' self Traction Supine Exercise Name Reviewed Reps/Minutes 1' Prone Exercises BIrd Dog Prone Exercise Name BUE/BLE ext- added to HEP (declined HO) Reps/Minutes 10 reps alternating Comments cued to slide leg not lift, phys & v cuing to keep core from L rot on L lif Prone press ups Prone Exercise Name Small mvmts press ups Reps/Minutes 10x Comments forearms>hands, pelvis on table/floor- good form, no pain Therapeutic Activity Therapeutic Activity Sitting/standing posture Name Sitting posture in different positions and review of hip hinging Reps/Minutes 2' Transfers Name Supine to sit log roll vs sit up transfer Reps/Minutes 5' Comments Reviewed briefly log roll transfer with handout. Body mechanics Name Body mechanics trning for bending to lift, lawn mowing, standing for dishes Reps/Minutes 5' Manual Therapy Treatment Consent Patient gave verbal Yes consent for manual treatment Manual Traction Manual LS Details ............ Body Position Hooklying LS Details Static positional traction with legs on traction stool Body Position Hooklying Comments Legs on stool Self-Care/Home Management Treatment Education Other Education Pt education and discussion of sitting posture ( different seats), posture stress in different postures and body mechanics including getting in out of car. Activities Self-Care/Home Issued & reviewed handouts: LB strain in different Management postures, proper sitting postures, and proper body Activities mechanics for ADLs. PT-OP-T Assessment and Plan Start: 12/01/24 18:59 Freq: Status: Active Protocol: Document 12/15/24 10:46 LRN (Rec: 12/15/24 11:39 LRN Laptop) Physical Therapy Assessment Goals Three Impairment Pt limited in sitting ability due to pain Short Term Goal (STG Pt will be educated in proper sitting/standing posture. ) 12/04/24: handout issued for safe sitting body mechanics. 12/11/24: using sit HO for guidence, can sit for 20-30 min beofre has to get up- using [employer] ergonomic chair home. 12/15/24: Pt educated in proper sitting posture, and for different seat types and proper standing posture with education in LB strain for different postures. STG Duration 01/01/25 (12/15/24: MET GOAL) Business Banking Officer Goal (LTG) Relief of pain to be able to sit for > 30 minutes. LTG Duration 01/29/25 Two Impairment Pt not able to return to prior level of function of exercise Short Term Goal (STG Pt will be educated in proper body mechanics for ADLs ) and exercise. 12/04/24: Brief discussion w/handout issued: Postures in lying (sup, side, prone). 12/15/24: Pt educated in proper body mechanics for ADLs. STG Duration 01/01/25 progressed 12/15/24 (needs educ for exer) Fdc Goal (LTG) Return to run 15' 1-2x/day (not running) or weight or cross training (being able to do squatting). LTG Duration 01/29/25 One Impairment Pt lacks appropriate self care HEP Short Term Goal (STG Pt will be educated and will demonstrate log roll ) transfers. 12/04/24: Pt briefly educated in log roll transfer sup >sit. 12/15/24: Reviewed log roll technique that pt had forgotten. STG Duration 01/01/25 progressed 12/15/24 Fdc Goal (LTG) Pt will be independent and consistent with a self care HEP for core/hip strengthening and mobility ex's. 12/11/24: prone press ups, bird dog (UE/LE ext), self traction hang vs hooklying (no HOs- declned), Can continue air/low wt squats, downward dog stretch, trialed plank with dues for proper form- no pain, reassess for time next tx. LTG Duration 01/29/25 progressing 12/11/24 Assessment Summary Assessment 34 yo male w/signs and symptoms of lumbar radiculopathy of LLE (L5), weakness of hamstring, ankle DF & Big toe extension, and limited mobility with trunk in absence of lateral trunk shift, and limited hip IR ROM. Today, pt is having more pain and is very sensitive with R trunk rot, causing L LE radiculopathy from moving too far. Pt is at times impulsive as he is not aware of his movement restrictions. Review of HEP showed pt is somewhat aggressive with ex of Prone press ups, and had poor awareness of core stability with bird dog. Pt needs to be more slowly progressed through core stab rehab. Pt was getting good relief with supine self traction at home. Pt moved slowly through transitions today to help control his pain/LE radiculopathy. Physical Therapy Plan Frequency and Duration Frequency of 2x/Week Treatment Duration of 8 treatment (weeks) Plan of Care Start 12/04/24 Date Plan of Care End 01/29/25 Date Next Visit Focus/Plan Next Note Type Treatment Note Next Visit Plan Next progress hip/trunk strength. Monitor for pt to move w/proper transfers; Educate pt in body mechanics for playing with child, exercise, and work posturing. Add isometric trunk rotation strengthening if tolerated . Hold rotation this week and try very, very slow progression for improvement in mobility. Seema extension exercises slow progression to prevent flare up, and improve thoracic mobility (flex, rot). Teach care for lumbar nerves and proper hip IR stretching (no ball rolling) & neural glides. Manual lumbar traction if needed. Modalities as needed for pain. POC: Seema Extension rehab. Pt education, Manual therapy. Therapeutic Exercises, Therapeutic Activities, Neuromuscular Reeducation.
--- NOTE | 2024-12-17 11:40 | PT.OTN ---
Current Diagnoses Attention-deficit hyperactivity disorder, unspecified type (12/17/24) Lesion of sciatic nerve, left lower limb (12/17/24) Radiculopathy, lumbosacral region (12/17/24) Physical Therapy Treatment Note PT-OP-A Visit Information Start: 12/01/24 18:59 Freq: Status: Active Protocol: Document 12/17/24 10:54 SP (Rec: 12/17/24 11:40 SP [id number]) Out-Patient Physical Therapy Visit Information Visit Information Visit Type Treatment Note Visit Start Time 10:55 Visit Stop Time 11:40 Visit Number 4 Number of NUCLEAR SPECTROSCOPIST Visits 1 Progress Note Due 01/04/25 PT-OP-B Current Condition Start: 12/01/24 18:59 Freq: Status: Active Protocol: Document 12/04/24 10:50 LRN (Rec: 12/04/24 11:48 LRN Laptop) Current Condition History of Current Condition Onset Date 3 yrs ago Current Complaints L buttock pain radiating into the leg, down the front of cash. History of Current Here for same pain as previously has had Piriformis Condition Pain. Feels like boiling water is running from L buttock down the front of the leg going across the knee . Previously treated 2 yrs in a clinic in [place] near the [employer] [facility]. Just got out of [place] 7 months ago. Piriformis pain managed with stretch from 2019 to 2021, started to be a problem 3 yrs ago pain wouldn' t go did not go away. Only stretching to manage the pain. Getting up from sitting is painful. Tries to walk daily, but has to break it up into increments 10- 15', 2-3x/day. Prior Treatments and PT in 2021 for the L LE pain. Tests Treatment Goals Patient/Caregiver Pt goals: Goals -Relief of pain to be able to sit for > 30 minutes, -Return to run 15' 1-2x/day (not running) or weight or cross training (being able to do squatting). -Consistent with HEP. 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 Effect Therapy/ Has 3 yo child. Recovery PT-OP-C Subjective Start: 12/01/24 18:59 Freq: Status: Active Protocol: Document 12/17/24 10:54 SP (Rec: 12/17/24 11:40 SP [id number]) OP-PT Subjective Patient Comments Patient Comments Pt reports felt good after last tx. Is only incorporating Upper and lower body machine no pain issues. PT-OP-H Neuro Start: 12/01/24 18:59 Freq: Status: Active Protocol: Document 12/04/24 10:50 LRN (Rec: 12/04/24 11:48 LRN Laptop) Sensation Evaluation Gross Sensation Gross Sensation Left LE Impaired Sensation Numbness,Tingling Description Dermatome L5 Impairments Location Details Left Lateral Leg Light Touch Impaired Comments Summary Comments Pt reported decreased sensation of anterior thigh, but at time of assessment sensation to light touch was normal Deep Tendon Reflex & Clonus Assessment Deep Tendon Reflex Right Achilles Deep Tendon Reflex 3+ Normal But Brisk Left Achilles Deep Tendon Reflex 2+ Normal Left Patellar Deep Tendon Reflex 1+ Diminished Right Patellar Deep Tendon Reflex 3+ Normal But Brisk PT-OP-J Posture/Palpation/Skin Start: 12/01/24 18:59 Freq: Status: Active Protocol: Document 12/04/24 10:50 LRN (Rec: 12/04/24 11:48 LRN Laptop) Posture Evaluation Position Standing Arm Posture (L) Internally Rotated,(R) Internally Rotated Comments Posture Comments RLE slightly ER'd more than left. Palpation Assessment Location L gluteal ms Palpation Findings Tenderness Spinous process of L3, L4, L5 Palpation Location PA pressure Palpation Findings Tenderness PT-OP-K Range of Motion Start: 12/01/24 18:59 Freq: Status: Active Protocol: Document 12/04/24 10:50 LRN (Rec: 12/04/24 11:48 LRN Laptop) Lumbar Spine Range of Motion Lumbar Spine Active Degrees Testing Position Standing Flexion 78 Extension 25 Rotation Left 20 Rotation Right 10 Lateral Flexion Left 25 Lateral Flexion 20 Right Comments Ext: Lumbar 25? with hip [id number]?. Flex: Lumbar 78? with hip flexion 55? Hip Goniometric Range of Motion Hip Right Passive Testing Position Supine Straight Leg Raise 90 Internal Rotation 20 External Rotation 55 Left Passive Straight Leg Raise 60 Internal Rotation 20 External Rotation 75 Comments Hip Flexion elicited sensation change in anterior thigh . PT-OP-L Special Tests Start: 12/01/24 18:59 Freq: Status: Active Protocol: Document 12/04/24 10:50 LRN (Rec: 12/04/24 11:48 LRN Laptop) Special Tests Lumbar Spine Special Tests Manual Traction Test Results + L LE Comments Mild normalization of L lateral lower leg sensation Straight Leg Raise Test Results + L LE Comments L LE Pain at PSLR 60 deg's, R LE 90 deg's PT-OP-M Strength Start: 12/01/24 18:59 Freq: Status: Active Protocol: Document 12/04/24 10:50 LRN (Rec: 12/04/24 11:48 LRN Laptop) Knee Strength Knee Manual Muscle Testing Right Comments Strength is 5/5 Left Flexion (S2) 4+ Good+ Comments Strength is 5/5 except as indicated abovel Ankle/Foot Strength Ankle and Foot Manual Muscle Testing Right Comments Strength is 5/5 Left Dorsiflexion (L4) 4+ Good+ Comments Strength is 5/5 except as indicated above. PT-OP-Q Treatments Start: 12/01/24 18:59 Freq: Status: Active Protocol: Document 12/17/24 10:54 SP (Rec: 12/17/24 11:40 SP [id number]) Therapeutic Exercises Supine Exercises NS/Vivek arm lifts Supine Exercise Name reviewed HEP: 1. core press then 2. arm lifts Side bilateral Equipment Used 1. long arm into table press 15 reps 2. long arm lifts- cued slow movement Reps/Minutes 15x- more challenge L-improved with lowering ribcage on L toward pelvis&TA Comments Cued elongated neutral CS, TS, LS, TA draw in some, scap table-impr corefac NS/Alt arm lifts Supine Exercise Name reviewed HEP Side bilateral Resistance hooklying Equipment Used no pillows under head Reps/Minutes 15x each alternating Comments Cued elongated neutral CS, TS, LS, TA draw in some, scap table-impr corefac Other Exercises Self STMs Other Exercise Name glut & ES ball wall Reps/Minutes discussed not performed today Comments gentle light pressure not push into pain Manual Therapy Treatment Consent Patient gave verbal Yes consent for manual treatment Soft Tissue Mobilization LB Body Location R>L: QL> ES & transab/obliques Mobilization Type Rolling,Strumming,Sustained Pressure,Other Body Position SL Comments Gentle light pressure STMs due to sensitive, incorporated sustained hold with breath found more comfortable. Self-Care/Home Management Treatment Education Patient Education Body Mechanics,Home Exercise Program,Joint Protection, Pain Management,Posture,Safety Other Education Extensive time education on anatomy of his posture trunk lean into RLE collapsing ribcage on R and thus tight and maybe why weaker on L lateral trunk during basic core lifts. Continued education on not performing activities that over flex or extend trunk eg bird dog weighted squats. Discussed LE machine back rest set up for femur lenth, PPT with TA brace to allow spinal alignment, resistance machines for upper body with spinal alignment and TA support mindful of weight performing against can hurt back if not supported enough. Pt verbalized understanding and didnt' realize how can be harmful if not properly set up/brace needed. PT-OP-T Assessment and Plan Start: 12/01/24 18:59 Freq: Status: Active Protocol: Document 12/17/24 10:54 SP (Rec: 12/17/24 11:40 SP [id number]) Physical Therapy Assessment Goals Three Impairment Pt limited in sitting ability due to pain Short Term Goal (STG Pt will be educated in proper sitting/standing posture. ) 12/04/24: handout issued for safe sitting body mechanics. 12/11/24: using sit HO for guidence, can sit for 20-30 min beofre has to get up- using [employer] good ergonomic chair home. 12/15/24: Pt educated in proper sitting posture, and for different seat types and proper standing posture with education in LB strain for different postures. STG Duration 01/01/25 (12/15/24: MET GOAL) Edge Bander Operator Goal (LTG) Relief of pain to be able to sit for > 30 minutes. LTG Duration 01/29/25 Two Impairment Pt not able to return to prior level of function of exercise Short Term Goal (STG Pt will be educated in proper body mechanics for ADLs ) and exercise. 12/04/24: Brief discussion w/handout issued: Postures in lying (sup, side, prone). 12/15/24: Pt educated in proper body mechanics for ADLs. STG Duration 01/01/25 progressed 12/15/24 (needs educ for exer) Edge Bander Operator Goal (LTG) Return to run 15' 1-2x/day (not running) or weight or cross training (being able to do squatting). LTG Duration 01/29/25 One Impairment Pt lacks appropriate self care HEP Short Term Goal (STG Pt will be educated and will demonstrate log roll ) transfers. 12/04/24: Pt briefly educated in log roll transfer sup >sit. 12/15/24: Reviewed log roll technique that pt had forgotten. STG Duration 01/01/25 progressed 12/15/24 Senior Living Goal (LTG) Pt will be independent and consistent with a self care HEP for core/hip strengthening and mobility ex's. 12/11/24: prone press ups, bird dog (UE/LE ext), self traction hang vs hooklying (no HOs- declned), Can continue air/low wt squats, downward dog stretch, trialed plank with dues for proper form- no pain, reassess for time next tx. LTG Duration 01/29/25 progressing 12/11/24 Assessment Summary Assessment Pt improved core and alignment corrections with TA support with extensive education on how to carryover resistane machines at gym safety. Verbalized understanding set up and will hold off on squats and bird dog at this time to not irritate nerve. Improved and suprised tiring core with proper form cues today. Physical Therapy Plan Frequency and Duration Frequency of 2x/Week Treatment Duration of 8 treatment (weeks) Plan of Care Start 12/04/24 Date Plan of Care End 01/29/25 Date Therapeutic Interventions Therapeutic Home Exercise Program,Joint Mobilizations,Manual Interventions Therapy,Neuromuscular Re-education,Self-Care/Home Management,Therapeutic Activities,Therapeutic Exercises Modalities Electric Stimulation,Hot Packs,Ultrasound Next Visit Focus/Plan Next Note Type Treatment Note Next Visit Plan Next progress hip/trunk strength. Monitor for pt to move w/proper transfers; Educate pt in body mechanics for playing with child, exercise, and work posturing. Add isometric trunk rotation strengthening if tolerated . Hold rotation this week and try very, very slow progression for improvement in mobility. Seema extension exercises slow progression to prevent flare up, and improve thoracic mobility (flex, rot). Teach care for lumbar nerves and proper hip IR stretching (no ball rolling) & neural glides. Manual lumbar traction if needed. Modalities as needed for pain. POC: Seema Extension rehab. Pt education, Manual therapy. Therapeutic Exercises, Therapeutic Activities, Neuromuscular Reeducation.
--- NOTE | 2024-12-24 10:13 | PT-OP ANOTE ---
Addendum entered and electronically signed by Antonieta Lloyd PTA 12/24/24 11:13: [employer] Magalie Christopher left voice message regarding missed appts and info provided below. SHAYY Fung spoke with schedulers and home health scheduler did called pt as well and left message regarding today 2nd missed/NS appt and policy will be discharged NS policy signed at eval but can call back give feedback of reasoning of missed appt. Original Note: Phoned patient due to no show, made patient aware of no show policy discharge with 2 no shows, also given phone number for front office medical assistant, should this NS be due to extenuating circumstances and time/date of next appointment.
--- NOTE | 2024-12-29 08:54 | PT-OP ANOTE ---
Pt appt not confirmed, appt was cancelled. CERTIFIED NEURODIAGNOSTIC TECHNOLOGIST called and left message, inquring of the cancellation or if was a mistake andstill coming before appt being filled with another pt. Reminded next appt 01/01.
--- NOTE | 2025-04-20 16:49 | PT.OPDS ---
Current Diagnoses Attention-deficit hyperactivity disorder, unspecified type (12/17/24) Lesion of sciatic nerve, left lower limb (12/17/24) Radiculopathy, lumbosacral region (12/17/24) Visit Care Team Role Provider Type Margaux Sue DO Attending Provider Physician Family Provider Primary Care Provider Referring Provider Specialty: [facility] Practice Address: [address] [place] [address], [address], [facility] Email: [email or web address] Visit Number Visit Number 4 Discharge Summary PT OP: Lower Back/Lower Extremity Start: 12/18/24 18:24 Freq: Status: Active Protocol: Document 04/20/25 16:41 LRN (Rec: 04/20/25 16:49 LRN Laptop) Physical Therapy Assessment Goals Three Impairment Pt limited in sitting ability due to pain Short Term Goal (STG Pt will be educated in proper sitting/standing posture. ) 12/04/24: handout issued for safe sitting body mechanics. 12/11/24: using sit HO for guidence, can sit for 20-30 min beofre has to get up- using [employer] good ergonomic chair home. 12/15/24: Pt educated in proper sitting posture, and for different seat types and proper standing posture with education in LB strain for different postures. STG Duration 01/01/25 (12/15/24: MET GOAL) Pulmonology Physician Goal (LTG) Relief of pain to be able to sit for > 30 minutes. LTG Duration 01/29/25 Early DC, not met goal Two Impairment Pt not able to return to prior level of function of exercise Short Term Goal (STG Pt will be educated in proper body mechanics for ADLs ) and exercise. 12/04/24: Brief discussion w/handout issued: Postures in lying (sup, side, prone). 12/15/24: Pt educated in proper body mechanics for ADLs. STG Duration 01/01/25 progress 12/15/24 Early DC, not met goal Longterm Goal (LTG) Return to run 15' 1-2x/day (not running) or weight or cross training (being able to do squatting). LTG Duration 01/29/25 Early DC, not met goal One Impairment Pt lacks appropriate self care HEP Short Term Goal (STG Pt will be educated and will demonstrate log roll ) transfers. 12/04/24: Pt briefly educated in log roll transfer sup >sit. 12/15/24: Reviewed log roll technique that pt had forgotten. STG Duration 01/01/25 progress 12/15/24 Early DC, not met goal Longterm Goal (LTG) Pt will be independent and consistent with a self care HEP for core/hip strengthening and mobility ex's. 12/11/24: prone press ups, bird dog (UE/LE ext), self traction hang vs hooklying (no HOs- declned), Can continue air/low wt squats, downward dog stretch, trialed plank with dues for proper form- no pain, reassess for time next tx. LTG Duration 01/29/25 progressed 12/11/24. Early DC, not met goal Assessment Summary Assessment Pt seen for therapy from 12/04/24 to 12/17/24 for an eval and 3 treatment visits. The pt did not complete therapy, cancelling 5 visits and DNS for 1 visit. The pt was able to make some progress in decreasing his pain but most goals were not met due to lack of attendance. Physical Therapy Plan Discharge Physical Therapy Discharge Reasons No Longer Attending PT
== END 2025-04-23 13:22 | disposition home or self-care (01) ==
LOC: PHYS 10:45
PROVIDERS: Family Provider Family Medicine; PCP Family Medicine; Referring Provider Family Medicine; Visit Provider Family Medicine
DX: G57.02 Lesion of sciatic nerve, left lower limb (principal); F90.9 Attention-deficit hyperactivity disorder, unspecified type; M54.17 Radiculopathy, lumbosacral region
CPT/HCPCS: 97110; 97140; 97162; 97530; 97535

== ENCOUNTER → 2025-03-26 18:45 | Outpatient (CLI) | payer OTHER, SELFPAY ==
--- NOTE | 2025-03-26 18:47 | DI.MRI.S_ITS ---
PROCEDURE: MR LUMBAR SPINE WO CON INDICATIONS: lumbosacral radiculopathy TECHNIQUE: Noncontrast sagittal T1 spin echo and T2 fast echo, sagittal STIR, and T2 fast spin echo through the lumbar spine. In cases with scoliosis, additional coronal T2 fast spin echo may be performed. COMPARISON: [facility], CT, CT LUMBAR SPINE W CON, 12/31/2024, 11:00. FINDINGS: Image quality: Extensive artifact on the axial sequences limits evaluation the spinal canal at the L3-L4 and cranially. Alignment and Curvature: There is normal bony alignment. Bone Marrow: Marrow is of normal overall signal. No acute vertebral body compression fractures. Spinal Cord: Visualized cord demonstrates normal signal and size. Paraspinous Soft Tissues: No paravertebral masses. T12-L1: Unremarkable within the limitations of artifact L1-L2: Unremarkable within the limitations of artifact L2-L3: Unremarkable within the limitations artifact. L3-L4: Unremarkable within the limitations artifact. L4-L5: Foraminal and lateral left disc disc osteophyte with abutment of exiting nerve root and moderate left foraminal narrowing. No right foraminal narrowing. Mild central canal narrowing due to disc bulge. L5-S1: Posterior disc bulge with central protrusion with caudal migration of disc material. Mild central canal stenosis. No foraminal narrowing. IMPRESSION: L4-L5 left foraminal protrusion with abutment of exiting nerve root. Disc osteophyte at this location noted on prior CT. L5-S1 central protrusion. Levels superior to L4-L5 partially obscured by artifact. Consider repeat examination if there is clinical concern for pathology above this level. Dictated by: Simba Wiseman M.D. on 03/27/2025 at 9:08 Approved by: Simba Wiseman M.D. on 03/27/2025 at 9:18
== END ==
PROVIDERS: Family Provider Family Medicine; PCP Family Medicine; Referring Provider Physical Medicine & Rehabilitation; Visit Provider Physical Medicine & Rehabilitation
DX: M51.16 Intervertebral disc disorders with radiculopathy, lumbar region (principal); M51.17 Intervertebral disc disorders with radiculopathy, lumbosacral region; M48.061 Spinal stenosis, lumbar region without neurogenic claudication; M48.07 Spinal stenosis, lumbosacral region
CPT/HCPCS: 72148